=== PATIENT | male | born 1985 | race Caucasian/White ===

== ENCOUNTER 2018-04-30 17:24 | Emergency (ER) | payer OTHER ==
--- NOTE | 2018-04-30 18:28 | RADIOLOGY REPORT (SQ) ---
EXAM DESCRIPTION: HAND LEFT 3 VIEWS COMPLETED DATE/TIME: 04/30/2018 6:18 pm REASON FOR STUDY: laceration COMPARISON: None. EXAM PARAMETERS: NUMBER OF VIEWS: Three views. TECHNIQUE: AP, lateral and oblique radiographic images acquired of the left hand. LIMITATIONS: None. FINDINGS: MINERALIZATION: Normal. BONES: There is minimal fracture of the tuft of the distal phalanx of the left long finger. No worri some bone lesions. JOINTS: No effusions. SOFT TISSUES: Soft tissue laceration about the distal left long finger. No radiopaque foreign body. OTHER: No other significant finding. IMPRESSION: Minimal fracture of the tuft of the distal phalanx of the left long finger. Soft tissue laceration without evidence of radiopaque foreign body. TECHNICAL DOCUMENTATION: JOB ID: [id number] [employer]- All Rights Reserved Reading location - IP/workstation name: [email or web address]
[2018-04-30] MEDS ORDERED: LIDOCAINE 1% INJ-PF (10 MG/ML) 30 ML SDV INJ ONE (18:30)
[2018-04-30] MEDS ORDERED: DIPH/PERTUSS(ACELL)/TETANUS VAC/PF 0.5 ML SYR (>=10YO) IM ONE (19:01)
--- NOTE | 2018-04-30 19:06 | ER Document Report ---
HPI - HPI Time Seen by Provider: 04/30/18 19:01 Pain Level: 4 Notes: Patient is a 32-year-old male no significant past medical history presents to the emergency department complaining of a laceration by table saw to his left third distal digit prior to arrival. Patient is the pain does not radiate. Denies drug allergies. He is not sure of his last tetanus. He is still able to move his finger without difficulty otherwise. Denies drug allergies. Denies any headache, fever, neck pain, URI, sore throat, chest pain, palpitations, syncope, cough, shortness of breath, wheeze, dyspnea, abdominal pain, nausea/vomiting/diarrhea, urinary retention, dysuria, hematuria, numbness/tingling, muscle paralysis/weakness, or rash. - ROS Systems Reviewed and Negative: Yes All other systems reviewed and negative Past Medical History - Social History Smoking Status: Never Smoker Family History: Reviewed & Not Pertinent Vertical Provider Document - CONSTITUTIONAL Agree With Documented VS: Yes Notes: PHYSICAL EXAMINATION: GENERAL: Well-appearing, well-nourished and in no acute distress. LUNGS: Breath sounds clear to auscultation bilaterally and equal. No wheezes rales or rhonchi. HEART: Regular rate and rhythm without murmurs, rubs, gallops. Musculoskeletal: Lt hand: + flap-like laceration involving the distal finger and the distal 1/3 of his finger nail. FROM to passive/active. Strength 5+/5. N/V intact distal otherwise. Extremities: No cyanosis, clubbing, or edema b/l. Peripheral pulses 2+. Capillary refill less than 3 seconds. NEUROLOGICAL: Normal speech, normal gait. Normal sensory, motor exams PSYCH: Normal mood, normal affect. SKIN: see above - INFECTION CONTROL TRAVEL OUTSIDE OF THE [place] IN LAST 30 DAYS: No Course - Re-evaluation Re-evalutation: 04/30/18 19:55 Patient is an afebrile, well-hydrated, 32-year-old male who presents to the ED with a distal tuft fracture to the 3rd left finger and laceration--open fracture. Vitals are acceptable without any significant tachycardia, tachypnea, or hypoxia. PE is otherwise unremarkable for any neurovascular compromise, obvious tendon/ligament rupture, septic joint. See XR result. Splint applied. Tylenol given PO. Tdap was updated today. Wound was thoroughly irrigated and cleansed. No obvious foreign body. Wound edges were approximated appropriately utilizing 3 simple interrupted sutures. Wound dressing was placed wound instructions reviewed. Patient is nontoxic-appearing. No other labs or imaging warranted at this time based on H&P. I will send him home with a prescription for Keflex and norco dispense. Conservative measures otherwise for symptoms. Recheck with your PCM in 3-5 days. Call orthopedics to schedule an appointment for further evaluation and management. Return to the ED with any worsening/concerning symptoms otherwise as reviewed in discharge. Patient is in agreement. - Vital Signs Vital signs: Temp Pulse Resp BP Pulse Ox 98.6 F 88 16 135/87 H 99 04/30/18 17:48 04/30/18 17:48 04/30/18 17:48 04/30/18 17:48 04/30/18 17:48 Procedures - Laceration/Wound Repair Left Finger 3rd digit Time completed: 19:45 Wound length (cm): 1.5 Wound's Depth, Shape: Superficial, Irregular, Flap, Nail-avulsed - distal 1/3 Laceration pre-procedure: Sterile PPE donned, Sterile drapes applied, Other - chlorhexadine/saline Anesthetic type: 1% Lidocaine Volume Anesthetic (mLs): 6 - digital block Wound explored: Clean, No foreign body removed Irrigated w/ Saline (mLs): 200 Wound Debrided: Minimal Wound Repaired With: Sutures Suture Size/Type: 4:0, Nylon Number of Sutures: 3 Layer Closure?: No Post-procedure wound care: Sterile dressing applied, Splint applied Post-procedure NV exam normal: Yes Complications: No Discharge - Discharge Clinical Impression: Open fracture of distal phalangeal tuft Condition: Stable Disposition: HOME, SELF-CARE Additional Instructions: Rest, Ice, Compression, Elevation Use splint as directed Take antibiotics for complete regimen Tylenol/ibuprofen as needed Sutures to stay in place until directed otherwise by Orthopedics at your f/u appointment. Wound instructions as reviewed F/u with your PCP in 3-5 days for a recheck Call orthopedics during their business hours to schedule an appointment for further evaluation and management Return to the ED with any worsening symptoms and/or development of fever, headache, chest pain, palpitations, syncope, shortness of breath, trouble breathing, abdominal pain, n/v/d, muscle weakness/paralysis, numbness/tingling, swelling, redness, or other worsening symptoms that are concerning to you. Prescriptions: Cephalexin Monohydrate [Keflex 500 mg Capsule] 500 mg PO TID #21 capsule Forms: Elevated Blood Pressure, Return to Work Referrals: [facility] [Provider Group] - Follow up in 3-5 days
[2018-04-30] MEDS ORDERED: ACETAMINOPHEN 325 MG TABLET PO ONE (19:07)
[2018-04-30] MEDS ORDERED: HYDROCODONE/ACETAMINOPHEN 5-325 MG (6 TAB/ER DISP) PO PRN (19:07)
[2018-04-30 20:16] VITALS: BP 153/95
== END 2018-04-30 20:19 | disposition home or self-care (01) ==
LOC: ER 17:24
DX: S62.633B Displaced fracture of distal phalanx of left middle finger, initial encounter for open fracture (principal); W29.8XXA Contact with other powered hand tools and household machinery, initial encounter; Z23 Encounter for immunization
CPT/HCPCS: 90471; 90715; 99283